=== PATIENT | male | born 1960 | race Caucasian/White ===

== ENCOUNTER 2020-08-07 22:32 | Emergency (ER) | payer SELFPAY ==
[~2020-08-07] VITALS: Ht 172.7 cm; Wt 64.0 kg
[2020-08-07] MEDS ORDERED: ACETAMINOPHEN 325MG TABLET PO ONE (23:15)
[2020-08-07] MEDS ORDERED: TRAMADOL 50MG TABLET PO ONE (23:15)
[2020-08-08 00:42] VITALS: BP 127/77
[2020-08-08] MEDS ORDERED: HYDR-4346 MT (01:41)
[2020-08-08] MEDS ORDERED: BACITRACIN ZINC OINT UDPKT TOP ONE (02:00)
== END 2020-08-08 02:15 | disposition home or self-care (01) ==
LOC: ER 22:32
DX: S00.11XA Contusion of right eyelid and periocular area, initial encounter (principal); S00.81XA Abrasion of other part of head, initial encounter; I10 Essential (primary) hypertension; Y04.0XXA Assault by unarmed brawl or fight, initial encounter; Y93.89 Activity, other specified; Y92.89 Other specified places as the place of occurrence of the external cause; Y99.8 Other external cause status
CPT/HCPCS: 70486; 93005; 99285